=== PATIENT | male | born 1995 | race African-American/Black ===

== ENCOUNTER 2017-05-02 16:19 | Emergency (ER) | payer BC, OTHER ==
[~2017-05-02] VITALS: Ht 165.1 cm; Wt 61.7 kg
[2017-05-02 16:29] VITALS: BP 124/69
--- NOTE | 2017-05-02 16:47 | PHYS DOC ---
Past Medical History Past Medical History: No Pertinent History Past Surgical History: No Surgical History Alcohol Use: None Drug Use: None Adult General Chief Complaint Chief Complaint: THUMB HPI HPI Patient is a 22 year old male presents to the emergency department with a history of hurting his right thumb. He states he has pain at the MCP 1st finger. He denies numbness, tingling or change in sensation. He is able to move the finger without difficulty. Patient is right hand dominant. Review of Systems Review of Systems Constitutional: Denies fever or chills [] Eyes: Denies change in visual acuity, redness, or eye pain [] HENT: Denies nasal congestion or sore throat [] Respiratory: Denies cough or shortness of breath [] Cardiovascular: No additional information not addressed in HPI [] GI: Denies abdominal pain, nausea, vomiting, bloody stools or diarrhea [] : Denies dysuria or hematuria [] Musculoskeletal: Denies back pain. C/o right 1st finger pain Integument: Denies rash or skin lesions [] Neurologic: Denies headache, focal weakness or sensory changes [] Endocrine: Denies polyuria or polydipsia [] Allergies Allergies Allergies Coded Allergies Type Severity Reaction Last Updated Verified No Known Drug Allergies 12/29/13 No Physical Exam Physical Exam Constitutional: Well developed, well nourished, no acute distress, non-toxic appearance. [] HENT: Normocephalic, atraumatic, bilateral external ears normal, oropharynx moist, no oral exudates, nose normal. [] Eyes: PERRLA, EOMI, conjunctiva normal, no discharge. [] Neck: Normal range of motion, no tenderness, supple, no stridor. [] Cardiovascular:Heart rate regular rhythm Lungs & Thorax: no respiratory distress Skin: Warm, dry, no erythema, no rash. [] Back: No tenderness Extremities: tenderness right first MCP, no cyanosis, no clubbing, ROM intact, no edema. Patient with full range of motion to the thumb. Cap refill brisk less than 2 seconds radial pulse 2+. No bruising or discoloration noted around the right thumb Neurologic: Alert and oriented X 3, normal motor function, normal sensory function, no focal deficits noted. [] Psychologic: Affect normal, judgement normal, mood normal. [] Current Patient Data Vital Signs Vital Signs Date Time Temp Pulse Resp B/P (MAP) Pulse Ox O2 Delivery O2 Flow Rate FiO2 05/02/17 16:29 98.0 63 18 99 Room Air 98.0 EKG EKG [] Radiology/Procedures Radiology/Procedures [] Course & Med Decision Making Course & Med Decision Making Pertinent Labs and Imaging studies reviewed. (See chart for details) X-ray was negative for any bony abnormalities per Dr. Dubon. Patient will be discharged home with recommendations for Tylenol or ibuprofen for pain and discomfort also recommended ice packs on 20 minutes off 20 minutes several times a day. Patient will be discharged home in stable condition signs and symptoms to return back to emergency parents been provided. All questions and concerns have been answered at patient's bedside. Patient will be placed in a splint with recommendations to followup with orthopedic in 3-5 days. [] Dragon Disclaimer Dragon Disclaimer This electronic medical record was generated, in whole or in part, using a voice recognition dictation system. Departure Departure Impression: Primary Impression: Pain of right thumb Disposition: HOME, SELF-CARE Condition: STABLE Referrals: NO PCP (PCP) JOHN BARBOSA MD Patient Instructions: Thumb Sprain Additional Instructions: Activity as tolerated. Medications as prescribed such as Tylenol or ibuprofen for pain and discomfort. Wear the splint until you followup with orthopedic Do NOT remove the splint Ice packs on 20 minutes off 20 minutes several times a day. Elevation as much as possible. Follow-up with your primary care physician or orthopedic if he continued have pain and discomfort. Return to emergency prior signs symptoms of become worse. Splinting Splinting : Location: right hand Hand-Made Type: orthoglass Splint: thumb spica Pre-Proc Neuro Vasc Exam: normal Post-Proc Neuro Vasc Exam: normal [employer] May 02, 2017 16:47
--- NOTE | 2017-05-02 16:49 | RAD ---
Examination: 3 views of the right first digit History: History of thumb pain Comparison: None available Findings The alignment of the first metacarpophalangeal joint, interphalangeal joint grossly appears unremarkable There is faint subtle cortical lucency identified in the midportion of the distal phalanx of the first digit seen only on the lateral view could be prominent nutrient foramen or faint hairline fracture. Correlate for point tenderness. A tiny sliver of bone density identified in the region of the third MCP joint seen on the AP view could be old avulsion or unfused ossicle. Impression: 1. Faint subtle cortical lucency identified in the midportion of the distal phalanx of the first digit seen only on the lateral view could be prominent nutrient foramen or faint hairline fracture. Correlate for point tenderness. 2. A tiny sliver of bone density identified in the region of the third MCP joint seen on the AP view could be old avulsion or unfused ossicle.
== END 2017-05-02 17:10 | disposition home or self-care (01) ==
LOC: ER 16:19
DX: M79.644 Pain in right finger(s) (principal)
CPT/HCPCS: 29125; 73140; 99284-25

== ENCOUNTER 2018-12-21 12:57 | Emergency (ER) | payer BC, SELFPAY ==
[~2018-12-21] VITALS: Ht 170.2 cm; Wt 63.5 kg
[2018-12-21 13:13] VITALS: BP 116/66
[2018-12-21] MEDS ORDERED: AZIT250T PO (13:25)
[2018-12-21] MEDS ORDERED: BENZ100C PO (13:25)
[2018-12-21] MEDS ORDERED: PRED50TA PO (13:25)
--- NOTE | 2018-12-21 13:25 | PHYS DOC ---
Past Medical History Past Medical History: No Pertinent History Past Surgical History: No Surgical History Alcohol Use: None Drug Use: None Adult General Chief Complaint Chief Complaint: Congestion HPI HPI Patient is a 23 year old male who presents with feeling of nasal congestion and cough. 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 Patient denies shortness of breath and productive cough and sick contact. Review of Systems Review of Systems Constitutional: Denies fever or chills [] Eyes: Denies change in visual acuity, redness, or eye pain [] HENT: Reports nasal congestion and sore throat Respiratory: Reports cough, denies shortness of breath Cardiovascular: No additional information not addressed in HPI [] GI: Denies abdominal pain, nausea, vomiting, bloody stools or diarrhea [] : Denies dysuria or hematuria [] Musculoskeletal: Denies back pain or joint pain [] Integument: Denies rash or skin lesions [] Neurologic: Denies headache, focal weakness or sensory changes [] Endocrine: Denies polyuria or polydipsia [] All other systems were reviewed and found to be within normal limits, except as documented in this note. Allergies Allergies Allergies Coded Allergies Type Severity Reaction Last Updated Verified No Known Drug Allergies 12/29/13 No Physical Exam Physical Exam Constitutional: Well developed, well nourished, mild distress, non-toxic appearance. [] HENT: Normocephalic, atraumatic, bilateral external ears normal, oropharynx moist, no oral exudates, nose normal. [] Eyes: PERRLA, EOMI, conjunctiva normal, no discharge. [] Neck: Normal range of motion, no tenderness, supple, no stridor. [] Cardiovascular:Heart rate regular rhythm, no murmur [] Lungs & Thorax: Bilateral breath sounds clear to auscultation [] Extremities: No tenderness, no cyanosis, no clubbing, ROM intact, no edema. [] Neurologic: Alert and oriented X 3, normal motor function, normal sensory function, no focal deficits noted. [] Psychologic: Affect normal, judgement normal, mood normal. [] Current Patient Data Vital Signs Vital Signs Date Time Temp Pulse Resp B/P (MAP) Pulse Ox O2 Delivery O2 Flow Rate FiO2 12/21/18 13:13 98.4 71 16 116/66 (83) 96 Room Air 98.4 EKG EKG [] Radiology/Procedures Radiology/Procedures [] Course & Med Decision Making Course & Med Decision Making I've spoken with the patient and/or caregivers. I've explained the patient's condition, diagnosis and treatment plan based on information available to me at this time. I've answered the patient's and/or caregivers questions and addressed any concerns. The patient and/or caregivers have a good understanding the patient's diagnosis, condition and treatment plan as can be expected at this point. Vital signs have been stabilized. The patient's condition is stable for discharge from the emergency department. The patient will pursue further outpatient evaluation with her primary care provider or other designated consulting physician as outlined in the discharge instructions. Patient and/or caregivers are agreeable to this plan of care and follow-up instructions have been explained in detail. The patient and/or caregivers have received these instructions in written format and expressed und erstanding of these discharge instructions. The patient and her caregivers are aware that if any significant change in condition or worsening of symptoms should prompt him to immediately return to this of the closest emergency department. If an emergent department is not readily available I would encourage him to call 911. Dragon Disclaimer Dragon Disclaimer This electronic medical record was generated, in whole or in part, using a voice recognition dictation system. Departure Departure Impression: Primary Impression: Bronchitis, acute Disposition: HOME, SELF-CARE (at 1322) Condition: STABLE Referrals: NO PCP (PCP) Patient Instructions: Acute Bronchitis Additional Instructions: Drink plenty of liquids Follow-up with your primary care physician in 3-5 days Return to ER if not getting better Scripts Azithromycin (ZITHROMAX) 250 Mg Tablet 1 PKG PO UD for infection, #1 PKG Prov: VALDO JJ MD 12/21/18 Benzonatate (TESSALON PERLE) 100 Mg Capsule 1 CAP PO TID for cough, #21 CAP Prov: VALDO JJ MD 12/21/18 Prednisone (PREDNISONE) 50 Mg Tablet 1 TAB PO DAILY, #5 TAB Prov: VALDO JJ MD 12/21/18 VALDO JJ MD December 21, 2018 13:25
== END 2018-12-21 13:39 | disposition home or self-care (01) ==
LOC: ER 12:57
DX: J20.9 Acute bronchitis, unspecified (principal)
CPT/HCPCS: 99283

== ENCOUNTER 2020-08-28 09:30 | Emergency (ER) | payer SELFPAY ==
[~2020-08-28] VITALS: Ht 175.3 cm; Wt 68.0 kg
[~2020-08-28 09:30] MED LIST: AZIT250T PO; BENZ100C PO; PRED50TA PO
[2020-08-28] MEDS ORDERED: AZITHROMYCIN 250 MG TABLET. PO ONE (10:30)
[2020-08-28] MEDS ORDERED: cefTRIAXone IM 250 MG VIAL IM ONE (10:30)
[2020-08-28 10:33] VITALS: BP 134/72
--- NOTE | 2020-08-28 10:39 | PHYS DOC ---
Past Medical History Past Medical History: No Pertinent History Past Surgical History: No Surgical History Smoking Status: Never Smoker Alcohol Use: None Drug Use: None General Adult EDM: Chief Complaint: SEXUALLY TRANSMITTED DISEASE HPI: HPI: Patient is a 25 year old male who present to ER for evaluation of pain with urination, and penile discharge for 2 weeks. Patient is sexually active. Patient denies any fever, no rash, no abdominal pain. Review of Systems: Review of Systems: Constitutional: Denies fever or chills. [] Eyes: Denies change in visual acuity. [] HENT: Denies nasal congestion or sore throat. [] Respiratory: Denies cough or shortness of breath. [] Cardiovascular: Denies chest pain or edema. [] GI: Denies abdominal pain, nausea, vomiting, bloody stools or diarrhea. [] : Positive for dysuria and penile discharge. Musculoskeletal: Denies back pain or joint pain. [] Integument: Denies rash. [] Neurologic: Denies headache, focal weakness or sensory changes. [] Endocrine: Denies polyuria or polydipsia. [] Lymphatic: Denies swollen glands. [] Psychiatric: Denies depression or anxiety. [] Heart Score: Risk Factors: Risk Factors: DM, Current or recent (<one month) smoker, HTN, HLP, family history of CAD, obesity. Risk Scores: Score 0 - 3: 2.5% MACE over next 6 weeks - Discharge Home Score 4 - 6: 20.3% MACE over next 6 weeks - Admit for Clinical Observation Score 7 - 10: 72.7% MACE over next 6 weeks - Early Invasive Strategies Current Medications: Current Medications Medications (Trade) Dose Ordered Sig/Leisa Start Time Stop Time Status Last Admin Dose Admin Azithromycin (Zithromax) 1,000 mg 1X ONCE 08/28/20 10:30 08/28/20 10:31 UNV Ceftriaxone Sodium (Rocephin Im) 500 mg 1X ONCE 08/28/20 10:30 08/28/20 10:31 DC Allergies: Allergies: Allergies Coded Allergies Type Severity Reaction Last Updated Verified No Known Drug Allergies 12/29/13 No Physical Exam: PE: Constitutional: Well developed, well nourished, no acute distress, non-toxic appearance. [] HENT: Normocephalic, atraumatic, bilateral external ears normal, oropharynx moist, no oral exudates, nose normal. [] Eyes: PERRLA, EOMI, conjunctiva normal, no discharge. [] Neck: Normal range of motion, no tenderness, supple, no stridor. [] Cardiovascular:Heart rate regular rhythm, no murmur [] Lungs & Thorax: Bilateral breath sounds clear to auscultation [] Abdomen: Bowel sounds normal, soft, no tenderness, no masses, no pulsatile masses. There is no penile rash. There is clear penile discharge. Skin: Warm, dry, no erythema, no rash. [] Back: No tenderness, no CVA tenderness. [] Extremities: No tenderness, no cyanosis, no clubbing, ROM intact, no edema. [] Neurologic: Alert and oriented X 3, normal motor function, normal sensory function, no focal deficits noted. [] Psychologic: Affect normal, judgement normal, mood normal. [] EKG: EKG: [] Radiology/Procedures: Radiology/Procedures: [] Course & Med Decision Making: Course & Med Decision Making Pertinent Labs and Imaging studies reviewed. (See chart for details) [] Dragon Disclaimer: Dragon Disclaimer: This electronic medical record was generated, in whole or in part, using a voice recognition dictation system. Departure Departure Impression: Primary Impression: Urethritis Disposition: 01 DC HOME SELF CARE/HOMELESS Condition: STABLE Referrals: NO PCP (PCP) follow up with your local health department for STD evaluation. Patient Instructions: Urethritis, Adult TOM BURNS DO Aug 28, 2020 10:39
[2020-08-28 11:00] LABS: BILIRUBIN,URINE NEGATIVE (NEG); CLARITY,URINE CLEAR; COLOR,URINE YELLOW; NITRITE,URINE NEGATIVE (NEG); PH,URINE 7.5 (<5.0-8.0); PROTEIN,URINE 30 mg/dL (NEG-TRACE)
[2020-08-28 11:22] LABS: BACTERIA,URINE FEW /HPF (0-FEW); RBC,URINE 0 /HPF (0-2)
== END 2020-08-28 11:22 | disposition home or self-care (01) ==
LOC: ER 09:30
DX: N34.2 Other urethritis (principal); R30.9 Painful micturition, unspecified
CPT/HCPCS: 81001; 87086; 87491; 87591; 96372; 99283; J0696